=== PATIENT | female | born 1995 | race Caucasian/White ===

== ENCOUNTER 2020-01-13 19:17 | Emergency (ER) | payer SELFPAY ==
[~2020-01-13] VITALS: Ht 160 cm; Wt 63.5 kg
[2020-01-13] MEDS ORDERED: IBUPROFEN 600 MG TABLET ONE (19:37)
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
--- NOTE | 2020-01-13 19:45 | NUR ---
IV INITIATED LAC 20G. LABS DRAWN FROM SITE. DJANGO DEVELOPER AT BEDSIDE FOR COLLECTION. IV INTACT AND PATENT, PLACED ON SALINE LOCK
[2020-01-13 19:51] LABS: BASOPHILS % (AUTO) 0.3 % (0.0-2.0); HEMATOCRIT 42 % (39-51); HEMOGLOBIN 13.5 g/dL (13.5-17.5); LYMPHOCYTES # (AUTO) 3.2 /CMM (0.8-4.8); LYMPHOCYTES % (AUTO) 34.9 % (20.0-44.0); MEAN CORPUSCULAR HGB CONC 32 g/dl (31.0-36.0); MEAN CORPUSCULAR VOLUME 84 fL (80-96); MONOCYTES # (AUTO) 0.5 /CMM (0.1-1.30); MONOCYTES % (AUTO) 5.6 % (2.0-12.0); NEUTROPHILS # (AUTO) 5.3 /CMM (1.8-8.9); NEUTROPHILS % (AUTO) 58.2 % (43.0-81.0); PLATELET COUNT (AUTO) 292 /CMM (150-450); RED BLOOD CELL COUNT(AUTO) 4.98 MIL/uL (4.5-6.0); WHITE BLOOD COUNT (AUTO) 9.2 K/uL (4.3-11.0)
--- NOTE | 2020-01-13 19:51 | NUR ---
RADIOLOGY AT BEDSIDE FOR XRAY
--- NOTE | 2020-01-13 19:56 | NUR ---
PT SIGNED WAIVER, PLACED IN PATIENT CHART.
--- NOTE | 2020-01-13 19:58 | NUR ---
PT BROUGHT BY RADIOLOGY TO CT
[2020-01-13 20:00] LABS: CALCIUM, SERUM 9.2 mg/dL (8.5-10.1); CREATININE 0.7 mg/dL (0.6-1.3); POTASSIUM 3.2 mmol/L (3.5-5.1)
[2020-01-13] MEDS ORDERED: IV NS 0.9% 1,000 ML BAG IV ONE (20:00)
[2020-01-13] MEDS ORDERED: IBUPROFEN 600 MG TABLET PO ONE (20:00)
--- NOTE | 2020-01-13 20:13 | NUR ---
PT RETURNED FROM CT
--- NOTE | 2020-01-13 20:18 | NUR ---
[facility] AT BEDSIDE
[2020-01-13 20:59] VITALS: BP 118/79
--- NOTE | 2020-01-13 20:59 | NUR ---
Patient discharged to home in stable condition. Written and verbal after care instructions given. Patient verbalizes understanding of instruction.IV removed. Catheter intact and site benign. Pressure and 4x4 applied to site. No bleeding noted.Pt ambulatory with a steady gait
== END 2020-01-13 21:00 | disposition home or self-care (01) ==
LOC: ER 19:20 → EDSEX 19:20 → ER 21:00
DX: S00.83XA Contusion of other part of head, initial encounter (principal); S80.12XA Contusion of left lower leg, initial encounter; S80.02XA Contusion of left knee, initial encounter; S50.812A Abrasion of left forearm, initial encounter; S50.811A Abrasion of right forearm, initial encounter; R42 Dizziness and giddiness; V49.49XA Driver injured in collision with other motor vehicles in traffic accident, initial encounter; Y93.89 Activity, other specified; Y92.413 State road as the place of occurrence of the external cause; Y99.8 Other external cause status
CPT/HCPCS: 36415; 70450; 70486; 73564; 80048; 85025; 96360; 99285; A6403; J7030